=== PATIENT | female | born 1960 | race Caucasian/White ===

== ENCOUNTER 2017-09-19 10:48 | Emergency (ER) | payer OTHER ==
[2017-09-19] MEDS ORDERED: ONDANSETRON HCL/PF 4 MG/ 2ML VIAL ONE (11:10)
[2017-09-19] MEDS ORDERED: 0.9 % SODIUM CHLORIDE 1,000 ML IV ONE ×3 (11:10→12:00)
[2017-09-19] MEDS ORDERED: ONDANSETRON HCL/PF 4 MG/ 2ML VIAL IVP ONE (11:15)
[2017-09-19 11:25] LABS: APPEARANCE,URINE CLOUDY (CLEAR); COLOR,URINE YELLOW (YELLOW); OCCULT BLOOD,URINE TRACE-LYSED (NEGATIVE); UROBILINOGEN URINE 0.2 Eu (0.2-1.0)
[2017-09-19 11:29] LABS: BASOPHILS % 0.4 (0.0-1.5); EOSINOPHILS % 0.1 % (0.0-6.8); MEAN CORPUSCULAR HEMOGLOBIN 30.9 pg (28.0-34.0); MEAN CORPUSCULAR VOLUME 91.3 fl (80.0-100.0); MONOCYTES % 8.2 % (0.0-11.0); NEUTROPHILS # 6.3 # k/uL (1.4-7.7)
--- NOTE | 2017-09-19 11:48 | ED Physician Documentation ---
General Adult - HISTORIAN Historian: patient - HPI Stated Complaint: dizzy, NICHOLS, bilat groin pain Chief Complaint: General Adult Additional Information: pt c/o low abdominal-groin pain under tx for uti cipro caused nausea then bactrim prod emesis and has not been eating or taking fluids as usuaL. has had diaphoresis and dizziness. in bed for approx 1 week and feels dehydrated. she has had the flu vaccine but also had flu like symptoms. her pcp is KYLAH BISHOP but is also under care urologists. we did comparitive renal function tests 01-21 vs today - as attached and gave copy to pt wi rec she see pcp very soon and probably her urologists. dialysis appears in her future Onset: days ago (15) Timing: still present, persistent since Severity: moderate - ROS CONST: sweating, weakness EYES/ENT: denies: problems with vision CVS/RESP: none. denies: shortness of breath GI/: abdominal pain, vomiting, nausea. denies: problems urinating MS/SKIN/LYMPH: denies: ankle swelling NEURO/PSYCH: dizziness. denies: headache, difficulty walking, difficulty with speech, anxiety, depression - PAST HX Past History: renal disease ( breast and cervicasl cancer sev yrs agoureteral stents and constructive surgery) Immunizations: influenza Allergies/Adverse Reactions: Allergies Allergy/AdvReac Type Severity Reaction Status Date / Time Penicillins Allergy Intermediate Itchy Skin Verified 09/19/17 11:23 Home Medications: Ambulatory Orders Medication Instructions Recorded Pantoprazole Sodium [Protonix] 1 tab PO DAILY 01/21/15 - SOCIAL HX Smoking History: non-smoker Alcohol Use: none Drug Use: none - FAMILY HX Family History: No - VITAL SIGNS Vital Signs: Vital Signs Temp Pulse Resp BP Pulse Ox 98.1 F 103 H 18 123/68 97 09/19/17 11:14 09/19/17 11:14 09/19/17 11:14 09/19/17 11:14 09/19/17 11:14 - REVIEWED ASSESSMENTS Nursing Assessment Reviewed: Yes Vitals Reviewed: Yes ED Results Lab/Radiology - Lab Results Lab Results: Lab Results 09/19/17 09/19/17 09/19/17 11:25 11:25 11:25 WBC 8.00 K/ul K/ul (4.00-12.00) RBC 4.46 M/ul M/ul (3.90-5.20) Hgb 13.8 g/dL g/dL (12.0-16.0) Hct 40.7 % % (34.5-46.5) MCV 91.3 fl fl (80.0-100.0) MCH 30.9 pg pg (28.0-34.0) MCHC 33.8 g/dL g/dL (30.0-36.0) RDW 12.4 % % (11.3-14.3) Plt Count 218 K/mm3 K/mm3 (130-400) Neut % (Auto) 78.8 % % (39.0-79.0) Lymph % (Auto) 10.7 % L % (16.0-50.0) [place] % (Auto) 8.2 % % (0.0-11.0) Eos % (Auto) 0.1 % % (0.0-6.8) Baso % (Auto) 0.4 (0.0-1.5) Neut # (Auto) 6.3 # k/uL # k/uL (1.4-7.7) Lymph # (Auto) 0.9 # k/uL # k/uL (0.6-4.0) [place] # (Auto) 0.6 # k/uL # k/uL (0.0-0.9) Eos # (Auto) 0.0 # k/uL # k/uL (0.0-0.6) Baso # (Auto) 0.0 # k/uL # k/uL (0.0-0.5) Reactive Lymphs % 1.7 % % (0.0-5.0) Reactive Lymphs # 0.1 # k/uL # k/uL (0.0-0.8) Sodium 139 mmol/L mmol/L (136-145) Potassium 3.8 mmol/L mmol/L (3.5-5.1) Chloride 98 mmol/L mmol/L (98-107) Carbon Dioxide 23 mmol/L mmol/L (22-30) BUN 29 mg/dL H mg/dL (7-17) Creatinine 3.70 mg/dL H mg/dL (0.52-1.04) Estimated Creat Clear 22 Est GFR ( Amer) 16 L (60 - ) Est GFR (Non-Af Amer) 13 L (60 - ) Glucose 113 mg/dL H mg/dL (74-106) Calcium 9.5 mg/dL mg/dL (8.4-10.2) Total Bilirubin 1.4 mg/dL H mg/dL (0.2-1.3) AST 41 U/L U/L (15-46) ALT 34 U/L U/L (13-69) Alkaline Phosphatase 187 U/L H U/L (38-126) Total Protein 8.3 g/dL H g/dL (6.3-8.2) Albumin 4.2 g/dL g/dL (3.5-5.0) Urine Color Yellow (YELLOW) Urine Appearance Cloudy H (CLEAR) Urine pH 6.0 (5.0 - 8.0) Ur Specific [place] 1.025 (1.010-1.030) Urine Protein 2+ mg/dL H mg/dL (NEGATIVE) Urine Ketones Negative mg/dL mg/dL (NEGATIVE) Urine Occult Blood Trace-lysed H (NEGATIVE) Urine Nitrite Negative (NEGATIVE) Urine Bilirubin Negative (NEGATIVE) Urine Urobilinogen 0.2 Eu Eu (0.2-1.0) Ur Leukocyte Esterase 1+ H (NEGATIVE) Urine Glucose Negative mg/dL mg/dL (NEGATIVE) - Orders Orders: ED Orders Category Date Time Status Place IV Lock 1T Care 09/19/17 11:14 Active CBC/PLATELET/DIFF Routine Lab 09/19/17 11:25 Completed CMP Routine Lab 09/19/17 11:25 Completed UA MACRO DIP ONLY Routine Lab 09/19/17 11:25 Completed URINE CULTURE Routine Lab 09/19/17 11:25 Received 0.9 % Sodium Chloride [Normal Saline] 1,000 ml Med 09/19/17 11:10 Discontinued IV .STK-MED 0.9 % Sodium Chloride [Normal Saline] 1,000 ml Med 09/19/17 11:14 Active IV Q1H Ondansetron HCl/Pf [Zofran 4 mg/2 ml] Med 09/19/17 11:10 Discontinued 4 mg .ROUTE .STK-MED ONE Ondansetron HCl/Pf [Zofran 4 mg/2 ml] Med 09/19/17 11:15 Discontinued 4 mg IVP NOW ONE General Adult Physical Exam - PHYSICAL EXAM GENERAL APPEARANCE: mild distress EENT: eye inspection normal NECK: normal inspection. No: carotid bruit RESPIRATORY: no resp distress, chest non-tender, breath sounds normal CVS: reg rate & rhythm, heart sounds normal ABDOMEN: soft, tenderness (slight genl) EXTREMITIES: non-tender, normal range of motion, no edema NEURO: oriented X3, motor nml, sensation nml, mood/affect nml Discharge Clincal Impression: influenza, exaberation renal failure Referrals: Kylah Bishop MD [Primary Care Provider] - 2 Days Comments: copies lab w/pt for her urologists-see him very soon Condition: Good Disposition: 01 HOME, SELF-CARE Decision to Admit: NO Decision Time: 13:21
[2017-09-19 13:25] VITALS: BP 114/69
== END 2017-09-19 13:21 | disposition home or self-care (01) ==
LOC: ED 10:48
DX: J11.1 Influenza due to unidentified influenza virus with other respiratory manifestations (principal); N17.9 Acute kidney failure, unspecified
CPT/HCPCS: 80053; 81002; 85025; 87086; J2405; J7030; 96365; 96366; 96375; 99283; S1016